=== PATIENT | male | born 1970 | race African-American/Black ===

== ENCOUNTER 2018-08-29 20:46 | Emergency (ER) | payer OTHER, SELFPAY ==
[2018-08-29] MEDS ORDERED: Adacel (T-DAP) 0.5 ML SYRINGE ONE (21:35)
--- NOTE | 2018-08-29 21:48 | RAD ---
Left ring finger 3 views HISTORY: Finger injury. FINDINGS: Joint spaces are preserved. Soft tissue swelling and laceration evident. No acute fracture, dislocation, or radiopaque foreign bodies. IMPRESSION: No acute osseous abnormalities are demonstrated.
[2018-08-29] MEDS ORDERED: Bacitracin Zinc 1 Packet ONE (22:11)
== END 2018-08-29 22:17 | disposition home or self-care (01) ==
LOC: ERS 20:46
DX: S61.215A Laceration without foreign body of left ring finger without damage to nail, initial encounter (principal); W45.8XXA Other foreign body or object entering through skin, initial encounter; Z23 Encounter for immunization
CPT/HCPCS: 12001; 90471; 90715

== ENCOUNTER 2022-02-11 14:10 | Inpatient (IN) | payer OTHER ==
[2022-02-11] MEDS ORDERED: Lidocaine 4% Cream 5 GM TUBE w/ Tegaderm ONE (15:13)
[2022-02-11 15:33] LABS: Mean Corpuscular HGB CONC 29.7 g/dL (32.0-36.0); Mean Corpuscular Hemoglobin 20.2 pg (27.0-31.0); Mean Corpuscular Volume 67.9 fl (78.0-98.0); Mean Platelet Volume 5.7 fL (7.4-10.4); Platelet Count 196 10x3/uL (130-400); RBC Distribution Width 21.4 % (11.5-14.5); Red Blood Cell (RBC) Count 2.98 mill/uL (4.70-6.10); White Blood Cell (WBC) Count 8.4 10x3/uL (4.8-10.8)
[2022-02-11 15:50] LABS: Anisocytosis MODERATE=16-30 cells (100X) (0-5/hpf); Band 10 % (5-11); Hypochromia SLIGHT = 6-15 cells (100X) (0-5/hpf); Lymphocytes 10 % (21-51); MDiff Complete? YES; Microcytosis SLIGHT = 6-15 cells (100X) (0-5/hpf); Monocytes 8 % (0-10); Neutrophil 72 % (42-75); Platelet Morphology Comment Appears Adequate; Polychromasia MODERATE = 3-4 cells (100X) (0-2/hpf); Spherocytes SLIGHT = 1-5 cells (100X) (None Seen); Target Cells SLIGHT = 2-5 cells (100X) (0-1/hpf); Tear Drops SLIGHT = 2-5 cells (100X) (0-1/hpf)
[2022-02-11 15:58] LABS: ALT (SGPT) 23 U/L (8-55); AST (SGOT) 91 U/L (5-34); Albumin 3.5 g/dL (3.5-5.0); Alkaline Phosphatase 122 U/L (40-110); Anion Gap 14 mmol/L (10-20); BUN (Urea Nitrogen) 5 mg/dL (8.4-25.7); Bilirubin, Total 0.5 mg/dL (0.2-1.2); Calc. Creatinine Clearance 0 mL/min (70-130); Calcium 8.6 mg/dL (7.8-10.44); Carbon Dioxide 22 mmol/L (22-29); Chloride 99 mmol/L (98-107); Estimated GFR 102; Globulin 3.8 g/dL (2.4-3.5); Glucose 100 mg/dL (70-105); Potassium 3.7 mmol/L (3.5-5.1); Protein, Total 7.3 g/dL (6.0-8.3); Sodium 131 mmol/L (136-145)
[2022-02-11 17:37] LABS: SARS-CoV-2 NAA Rapid Test Not Detected (NotDetected)
[2022-02-11] MEDS ORDERED: Boostrix 0.5 ML (Tdap) VIAL (>/=7 yrs of age) ONE (17:54)
[2022-02-11] MEDS ORDERED: Lorazepam 2 MG/ML VIAL IM PRN (17:57)
[2022-02-11] MEDS ORDERED: Ondansetron ODT 4 MG TAB PO PRN (17:57)
[2022-02-11] MEDS ORDERED: Lorazepam 1 MG TAB PO PRN (17:57)
[2022-02-11] MEDS ORDERED: Electrolyte Replacement Protocol 1 EACH FS SCH (18:00)
[2022-02-11] MEDS ORDERED: Benzonatate 100 MG CAP PO PRN (18:02)
[2022-02-11 18:30] LABS: Alcohol 18 mg/dL (Less than 10); Phosphorus 3.7 mg/dL (2.3-4.7)
[2022-02-11] MEDS ORDERED: Multivit, Therapeutic 1 TAB PO SCH (18:45)
[2022-02-11] MEDS ORDERED: Folic Acid 1 MG TAB PO SCH (18:45)
[2022-02-11 18:50] VITALS: BMI 25.8
[2022-02-11 19:34] LABS: Acetaminophen Less than 10.0 mcg/mL (10.0-30.0); Salicylate Less than 8.0 mg/dL (15.0-30.0)
[2022-02-11 20:09] LABS: Bacteria/HPF None Seen HPF (None Seen); Bilirubin Negative (Negative); Blood, Urine Negative (Negative); CAUTI Indications for Culture Fever or rigors; Clarity Clear (Clear); Glucose, Urine (Dipstick) Normal (Negative); Ketone, Urine Negative (Negative); Leukocyte Negative Leu/uL (Negative); Nitrite Negative (Negative); Protein, Urine (Dipstick) Negative (Neg-Trace); RBC/HPF 0-3 HPF (0-3); Specific Gravity, Urine 1.007 (1.002-1.036); Squamous Epithelial 0-3 HPF (0-3); Urobilinogen Normal mg/dL (Less than 2); WBC/HPF 0-3 HPF (0-3)
[2022-02-11 20:11] LABS: Urine Culture Reflex No No
[2022-02-11 20:16] LABS: Amphetamine Not Detected (NotDetected); Barbiturates Screen Not Detected (NotDetected); Benzodiazepine Screen Not Detected (NotDetected); Cocaine Metabolite Screen Not Detected (NotDetected); Methadone Not Detected (NotDetected); Methamphetamine Not Detected (NotDetected); Opiate Screen Not Detected (NotDetected); Oxycodone Screen Not Detected (NotDetected); Phencyclidine (PCP) Not Detected (NotDetected); THC/Cannabinoid Screen Not Detected (NotDetected); Tricyclic Screen Not Detected (NotDetected)
[2022-02-11] MEDS: Thiamine HCl 200 MG/2 ML VIAL SLOW IVP SCH (21:07)
[2022-02-11] MEDS: Pantoprazole 40 MG VIAL IVP SCH (21:08)
[2022-02-12] MEDS: Acetaminophen 325 MG TAB PO PRN ×4 (02:04→23:40)
[2022-02-12 05:19] LABS: Hemoglobin 5.7 g/dL (14.0-18.0); Mean Corpuscular HGB CONC 29.5 g/dL (32.0-36.0); Mean Corpuscular Hemoglobin 19.8 pg (27.0-31.0); Mean Corpuscular Volume 67.1 fl (78.0-98.0); Mean Platelet Volume 6.1 fL (7.4-10.4); Platelet Count 193 10x3/uL (130-400); RBC Distribution Width 21.3 % (11.5-14.5); Red Blood Cell (RBC) Count 2.89 mill/uL (4.70-6.10); White Blood Cell (WBC) Count 5.8 10x3/uL (4.8-10.8)
[2022-02-12 05:28] LABS: ALT (SGPT) 20 U/L (8-55); AST (SGOT) 74 U/L (5-34); Albumin 3.2 g/dL (3.5-5.0); Alkaline Phosphatase 105 U/L (40-110); Anion Gap 10 mmol/L (10-20); BUN (Urea Nitrogen) 6 mg/dL (8.4-25.7); Bilirubin, Direct 0.3 mg/dL (0.1-0.3); Bilirubin, Total 0.4 mg/dL (0.2-1.2); Calc. Creatinine Clearance 101 mL/min (70-130); Calcium 8.2 mg/dL (7.8-10.44); Carbon Dioxide 24 mmol/L (22-29); Chloride 102 mmol/L (98-107); Estimated GFR 104; Glucose 101 mg/dL (70-105); Iron 8 ug/dL (65-175); Iron Binding Capacity, Total 378 mcg/dL (261-462); Potassium 3.5 mmol/L (3.5-5.1); Protein, Total 6.7 g/dL (6.0-8.3); Sodium 132 mmol/L (136-145)
[2022-02-12 05:49] LABS: Ferritin 18.52 ng/mL (22-322)
[2022-02-12] MEDS ORDERED: Potassium Chloride 20 MEQ TAB PO SCH (08:00)
[2022-02-12] MEDS ORDERED: Magnesium 2 GM/50 ML(in water) 2 GM in Premix Bag 1 BAG IVPB SCH (08:00)
[2022-02-12] MEDS: Pantoprazole 40 MG VIAL IVP SCH ×2 (09:08→20:27)
[2022-02-12] MEDS: Multivit, Therapeutic 1 TAB PO SCH (09:08)
[2022-02-12] MEDS: Folic Acid 1 MG TAB PO SCH (09:08)
[2022-02-12] MEDS ORDERED: GoLYTELY 4,000 ml Bottle PO SCH (17:00)
[2022-02-12] MEDS: Thiamine HCl 200 MG/2 ML VIAL SLOW IVP SCH (17:13)
[2022-02-12] MEDS ORDERED: Lorazepam 1 MG TAB PO PRN (17:57)
[2022-02-12 18:39] LABS: Hemoglobin 8.1 g/dL (14.0-18.0)
[2022-02-13 05:07] LABS: #Eosinphils 0.1 thou/uL (0.0-0.7); #Lymphocytes 2.1 thou/uL (1.20-3.40); #Neutrophils 4.1 thou/uL (1.40-6.50); %Basophils 0.1 % (0.0-1.0); %Eosinophils 1.2 % (0.0-10.0); %Monocytes 13.1 % (0.0-10.0); %Neutrophils 56.5 % (42.0-75.0); Hemoglobin 8.1 g/dL (14.0-18.0); Mean Corpuscular HGB CONC 33.1 g/dL (32.0-36.0); Mean Corpuscular Hemoglobin 23.9 pg (27.0-31.0); Mean Corpuscular Volume 72.1 fl (78.0-98.0); Mean Platelet Volume 6.5 fL (7.4-10.4); Platelet Count 166 10x3/uL (130-400); RBC Distribution Width 22.7 % (11.5-14.5); Red Blood Cell (RBC) Count 3.41 mill/uL (4.70-6.10); White Blood Cell (WBC) Count 7.2 10x3/uL (4.8-10.8)
[2022-02-13 05:30] LABS: ALT (SGPT) 22 U/L (8-55); AST (SGOT) 69 U/L (5-34); Albumin 3.2 g/dL (3.5-5.0); Alkaline Phosphatase 111 U/L (40-110); Anion Gap 11 mmol/L (10-20); BUN (Urea Nitrogen) 5 mg/dL (8.4-25.7); Bilirubin, Total 1.1 mg/dL (0.2-1.2); Calc. Creatinine Clearance 109 mL/min (70-130); Calcium 8.3 mg/dL (7.8-10.44); Carbon Dioxide 23 mmol/L (22-29); Chloride 103 mmol/L (98-107); Estimated GFR 106; Globulin 3.7 g/dL (2.4-3.5); Glucose 94 mg/dL (70-105); Magnesium 2.1 mg/dL (1.6-2.6); Phosphorus 2.8 mg/dL (2.3-4.7); Potassium 3.7 mmol/L (3.5-5.1); Protein, Total 6.9 g/dL (6.0-8.3); Sodium 133 mmol/L (136-145)
[2022-02-13] MEDS: Acetaminophen 325 MG TAB PO PRN (06:18)
[2022-02-13] MEDS ORDERED: PROPOFOL 200 MG/20 ML VIAL ONE (09:15)
[2022-02-13] MEDS ORDERED: Promethazine HCl 25 MG/ML VIAL IM PRN (09:46)
[2022-02-13] MEDS ORDERED: Ondansetron HCl/PF 4 MG/2 ML Vial IVP PRN (09:46)
[2022-02-13] MEDS ORDERED: Promethazine HCl 25 MG/ML VIAL IVPB PRN (09:46)
[2022-02-13] MEDS: Folic Acid 1 MG TAB PO SCH (16:55)
[2022-02-13] MEDS: Multivit, Therapeutic 1 TAB PO SCH (16:55)
[2022-02-13] MEDS: Thiamine HCl 200 MG/2 ML VIAL SLOW IVP SCH (16:55)
[2022-02-13] MEDS: Pantoprazole 40 MG VIAL IVP SCH ×2 (16:56→20:28)
[2022-02-13] MEDS ORDERED: Lorazepam 1 MG TAB PO PRN (17:57)
[2022-02-14 05:31] LABS: #Basophils 0.1 thou/uL (0.0-0.2); #Eosinphils 0.2 thou/uL (0.0-0.7); #Lymphocytes 2.8 thou/uL (1.20-3.40); #Neutrophils 4.3 thou/uL (1.40-6.50); %Basophils 1.6 % (0.0-1.0); %Eosinophils 2.1 % (0.0-10.0); %Lymphocytes 33.4 % (21.0-51.0); %Monocytes 11.5 % (0.0-10.0); %Neutrophils 51.4 % (42.0-75.0); Hemoglobin 8.2 g/dL (14.0-18.0); Mean Corpuscular HGB CONC 31.2 g/dL (32.0-36.0); Mean Corpuscular Hemoglobin 22.3 pg (27.0-31.0); Mean Corpuscular Volume 71.3 fl (78.0-98.0); Mean Platelet Volume 6.7 fL (7.4-10.4); Platelet Count 163 10x3/uL (130-400); RBC Distribution Width 23.2 % (11.5-14.5); Red Blood Cell (RBC) Count 3.67 mill/uL (4.70-6.10); White Blood Cell (WBC) Count 8.4 10x3/uL (4.8-10.8)
[2022-02-14 05:43] LABS: ALT (SGPT) 24 U/L (8-55); AST (SGOT) 64 U/L (5-34); Albumin 3.2 g/dL (3.5-5.0); Alkaline Phosphatase 103 U/L (40-110); Anion Gap 10 mmol/L (10-20); BUN (Urea Nitrogen) 6 mg/dL (8.4-25.7); Bilirubin, Total 0.6 mg/dL (0.2-1.2); Calc. Creatinine Clearance 106 mL/min (70-130); Calcium 8.3 mg/dL (7.8-10.44); Carbon Dioxide 24 mmol/L (22-29); Chloride 104 mmol/L (98-107); Estimated GFR 105; Globulin 3.5 g/dL (2.4-3.5); Glucose 97 mg/dL (70-105); Potassium 3.7 mmol/L (3.5-5.1); Protein, Total 6.7 g/dL (6.0-8.3); Sodium 134 mmol/L (136-145)
[2022-02-14] MEDS ORDERED: FLU VACC QS2022-23(6MOS UP)/PF 60 MCG/0.5 ML SYRINGE IM ONE (09:00)
[2022-02-14] MEDS: Multivit, Therapeutic 1 TAB PO SCH (09:32)
[2022-02-14] MEDS: Folic Acid 1 MG TAB PO SCH (09:32)
[2022-02-14] MEDS: Pantoprazole 40 MG VIAL IVP SCH (09:33)
[2022-02-14 11:37] VITALS: BP 115/71; TEMP 98.4
[2022-02-14] MEDS ORDERED: Lorazepam 0.5 MG TAB PO PRN (17:57)
[2022-02-14] MEDS ORDERED: Thiamine 100 MG TAB PO SCH (18:00)
== END 2022-02-14 16:26 | disposition home or self-care (01) | DRG 812 ==
LOC: ERS 14:10 → 2SW 17:35 → OBSVTOIN 17:35 → 2SW 18:32
PROVIDERS: ADMIT Hospitalist; ATTEND Hospitalist
PROC: 30233N1 Transfusion of Nonautologous Red Blood Cells into Peripheral Vein, Percutaneous Approach (ICD-10-PCS; principal; 2022-02-11)
PROC: 0DB68ZX Excision of Stomach, Via Natural or Artificial Opening Endoscopic, Diagnostic (ICD-10-PCS; 2022-02-13)
PROC: 0DBL8ZZ Excision of Transverse Colon, Via Natural or Artificial Opening Endoscopic (ICD-10-PCS; 2022-02-13)
DX: D50.9 Iron deficiency anemia, unspecified (principal); E87.1 Hypo-osmolality and hyponatremia; Z20.822 Contact with and (suspected) exposure to COVID-19; K64.8 Other hemorrhoids; K64.4 Residual hemorrhoidal skin tags; K63.5 Polyp of colon; R05.9 Cough, unspecified; R94.5 Abnormal results of liver function studies; K29.70 Gastritis, unspecified, without bleeding; K70.10 Alcoholic hepatitis without ascites; F10.10 Alcohol abuse, uncomplicated; Z28.21 Immunization not carried out because of patient refusal
CPT/HCPCS: 12001; 36415; 36430; 70450; 71045; 80048; 80053; 80076; 80143; 80179; 80306; 80307; 81001; 82274; 82607; 82728; 83540; 83550; 83735; 84100; 84484; 85025; 86850; 86900; 86901; 87040; 87804; 88305; 88342; 90471; 90715; 93005; 93306; 96360; 96361; 96374; 96375; 96376; C1776; C9113; G0378; J2704; J3411; J3475; P9016; U0002

== ENCOUNTER 2023-01-03 11:34 | Emergency (ER) | payer OTHER ==
[2023-01-03 13:06] LABS: #Eosinphils 0.1 thou/uL (0.0-0.7); #Monocytes 0.9 thou/uL (0.11-0.59); #Neutrophils 5.7 thou/uL (1.40-6.50); %Basophils 0.5 % (0.0-1.0); %Eosinophils 0.6 % (0.0-10.0); %Lymphocytes 17.3 % (21.0-51.0); %Monocytes 11.3 % (0.0-10.0); %Neutrophils 69.9 % (42.0-75.0); Hematocrit 34.7 % (42.0-52.0); Hemoglobin 11.4 g/dL (14.0-18.0); Mean Corpuscular HGB CONC 32.9 g/dL (32.0-36.0); Mean Corpuscular Hemoglobin 27.1 pg (27.0-31.0); Mean Corpuscular Volume 82.6 fl (78.0-98.0); Mean Platelet Volume 11.3 fL (7.4-10.4); RBC Distribution Width 15.9 % (11.5-14.5); White Blood Cell (WBC) Count 8.1 10x3/uL (4.8-10.8)
[2023-01-03 13:08] LABS: Platelet Count 105 10x3/uL (130-400)
[2023-01-03 13:25] LABS: ALT (SGPT) 33 U/L (8-55); AST (SGOT) 136 U/L (5-34); Albumin 4.3 g/dL (3.5-5.0); Alkaline Phosphatase 214 U/L (40-110); Anion Gap 16 mmol/L (10-20); BUN (Urea Nitrogen) 4 mg/dL (8.4-25.7); Bilirubin, Total 1.6 mg/dL (0.2-1.2); Calc. Creatinine Clearance 0 mL/min (70-130); Calcium 9.6 mg/dL (7.8-10.44); Carbon Dioxide 22 mmol/L (22-29); Chloride 100 mmol/L (98-107); Estimated GFR 107; Globulin 3.6 g/dL (2.4-3.5); Glucose 105 mg/dL (70-105); Potassium 3.9 mmol/L (3.5-5.1); Protein, Total 7.9 g/dL (6.0-8.3); Sodium 134 mmol/L (136-145)
[2023-01-03 13:48] LABS: SARS-CoV-2 NAA Rapid Test Not Detected (NotDetected)
== END 2023-01-03 14:37 | disposition home or self-care (01) ==
LOC: ERS 11:34
DX: J06.9 Acute upper respiratory infection, unspecified (principal); Z20.822 Contact with and (suspected) exposure to COVID-19
CPT/HCPCS: 36415; 71046; 80053; 85025

== ENCOUNTER 2023-12-22 08:28 | Inpatient (IN) | payer OTHER ==
[2023-12-22] MEDS ORDERED: Ondansetron PF 4 MG/2 ML Vial ONE (09:21)
[2023-12-22] MEDS ORDERED: Pantoprazole 40 MG VIAL ONE (09:21)
[2023-12-22 10:14] LABS: #Basophils 0.06 10x3/uL (0.0-0.2); %Basophils 0.4 % (0.0-1.0); %Eosinophils 1.8 % (0.0-10.0); %Lymphocytes 15.4 % (21.0-51.0); %Monocytes 9.2 % (0.0-10.0); %Neutrophils 72.7 % (42.0-75.0); Hematocrit 21.7 % (42.0-52.0); Hemoglobin 7.1 g/dL (14.0-18.0); Mean Corpuscular HGB CONC 32.7 g/dL (32.0-36.0); Mean Corpuscular Hemoglobin 22.8 pg (27.0-31.0); Mean Corpuscular Volume 69.6 fL (78.0-98.0); Mean Platelet Volume 10.5 fL (7.4-10.4); Platelet Count 141 10x3/uL (130-400); RBC Distribution Width 18.6 % (11.5-14.5); Red Blood Cell (RBC) Count 3.12 mill/uL (4.70-6.10)
[2023-12-22 10:17] LABS: INR-International Normal Ratio 1.2; Prothrombin Time 15.7 sec (12.0-14.7)
[2023-12-22 10:21] LABS: ALT (SGPT) 14 U/L (8-55); AST (SGOT) 59 U/L (5-34); Alkaline Phosphatase 229 U/L (40-110); Anion Gap 13 mmol/L (10-20); BUN (Urea Nitrogen) 8 mg/dL (8.4-25.7); Bilirubin, Total 1.9 mg/dL (0.2-1.2); Calc. Creatinine Clearance 0 mL/min (70-130); Calcium 8.8 mg/dL (7.8-10.44); Carbon Dioxide 24 mmol/L (22-29); Chloride 104 mmol/L (98-107); Estimated GFR 107; Glucose 115 mg/dL (70-105); Lipase 33 U/L (8-78); Magnesium 1.9 mg/dL (1.6-2.6); Potassium 3.8 mmol/L (3.5-5.1); Sodium 137 mmol/L (136-145)
[2023-12-22 10:31] LABS: Troponin I Less than 0.010 ng/mL (< 0.028)
[2023-12-22 10:34] LABS: Bacteria/HPF None Seen HPF (None Seen); Bilirubin Negative (Negative); Blood, Urine Negative (Negative); CAUTI Indications for Culture Dysuria,urgency,freq; Clarity Clear (Clear); Glucose, Urine (Dipstick) Normal (Negative); Ketone, Urine Negative (Negative); Leukocyte Negative Leu/uL (Negative); Nitrite Negative (Negative); Protein, Urine (Dipstick) Negative (Neg-Trace); RBC/HPF None Seen HPF (0-3); Specific Gravity, Urine 1.012 (1.002-1.036); Squamous Epithelial 0-3 HPF (0-3); Urobilinogen Normal mg/dL (Less than 2); WBC/HPF 0-3 HPF (0-3); pH, Urine 6.5 (5.0-9.0)
[2023-12-22 10:42] LABS: Urine Culture Reflex No No
[2023-12-22] MEDS ORDERED: Octreotide Acetate 1,250 MCG in Sodium Chloride 0.9% 250 ML 250 ML IVPB SCH (11:15)
[2023-12-22] MEDS ORDERED: Pantoprazole 80 MG, Admixture Fee 1 EACH in Sodium Chloride 0.9% 100 ML IVPB SCH (11:15)
[2023-12-22] MEDS ORDERED: Iopamidol-370 76% 500 ML MDV (1 ML CHARGE) ONE (11:31)
[2023-12-22] MEDS ORDERED: cefTRIAXone (ROCEPHIN) 2 GM VIAL ONE (11:35)
[2023-12-22] MEDS ORDERED: Sodium Chloride 0.9% 100 ML ONE (11:35)
[2023-12-22] MEDS ORDERED: Ondansetron PF 4 MG/2 ML Vial IVP PRN (12:05)
[2023-12-22] MEDS ORDERED: Ondansetron ODT 4 MG TAB PO PRN (12:05)
[2023-12-22] MEDS ORDERED: Lorazepam 2 MG/ML VIAL IM PRN (12:05)
[2023-12-22] MEDS ORDERED: Lorazepam 1 MG TAB PO PRN (12:05)
[2023-12-22] MEDS ORDERED: Electrolyte Replacement Protocol 1 EACH FS SCH (12:15)
[2023-12-22] MEDS: Magnesium 2 GM/50 ML(in water) 2 GM in Premix 1 BAG IVPB SCH (15:27)
[2023-12-22] MEDS: Lorazepam 1 MG TAB PO SCH (15:27)
[2023-12-22] MEDS: Acetaminophen 325 MG TAB PO SCH (15:27)
[2023-12-22] MEDS: Thiamine HCl 200 MG/2 ML VIAL SLOW IVP SCH (15:27)
[2023-12-22] MEDS: Octreotide Acetate 50 MCG/ML AMP SLOW IVP SCH (15:27)
[2023-12-22 15:33] LABS: Lactic Acid 1.46 mmol/L (0.5-2.2)
[2023-12-22] MEDS: Folic Acid 1 MG TAB PO SCH (21:21)
[2023-12-22] MEDS: Multivit, Therapeutic 1 TAB PO SCH (21:21)
[2023-12-22] MEDS: Pantoprazole 40 MG VIAL IVP SCH (21:22)
[2023-12-23 02:58] LABS: #Basophils 0.06 10x3/uL (0.0-0.2); %Basophils 0.5 % (0.0-1.0); %Eosinophils 2.8 % (0.0-10.0); %Lymphocytes 14.1 % (21.0-51.0); %Monocytes 8.8 % (0.0-10.0); %Neutrophils 73.4 % (42.0-75.0); Hematocrit 19.8 % (42.0-52.0); Hemoglobin 6.5 g/dL (14.0-18.0); Mean Corpuscular HGB CONC 32.8 g/dL (32.0-36.0); Mean Corpuscular Hemoglobin 23.2 pg (27.0-31.0); Mean Corpuscular Volume 70.7 fL (78.0-98.0); Mean Platelet Volume 11.1 fL (7.4-10.4); Platelet Count 108 10x3/uL (130-400); RBC Distribution Width 18.9 % (11.5-14.5)
[2023-12-23 02:59] LABS: Anisocytosis SLIGHT = 6-15 cells HPF (0-5); Hypochromia SLIGHT = 6-15 cells HPF (0-5); Microcytosis SLIGHT = 6-15 cells HPF (0-5); Platelet Adequacy Comment Platelets Decreased; Polychromasia SLIGHT = 2-3 cells HPF (0-2); Target Cells SLIGHT = 2-5 cells HPF (0-1)
[2023-12-23 03:41] LABS: Anion Gap 14 mmol/L (10-20); BUN (Urea Nitrogen) 7 mg/dL (8.4-25.7); Calc. Creatinine Clearance 115 mL/min (70-130); Calcium 7.9 mg/dL (7.8-10.44); Carbon Dioxide 19 mmol/L (22-29); Chloride 103 mmol/L (98-107); Estimated GFR 109; Glucose 134 mg/dL (70-105); Potassium 3.8 mmol/L (3.5-5.1); Sodium 132 mmol/L (136-145)
[2023-12-23] MEDS ORDERED: PROPOFOL 20 ML ONE (08:52)
[2023-12-23] MEDS ORDERED: Lidocaine 2% PF 5 ML VIAL ONE (08:59)
[2023-12-23] MEDS ORDERED: PHENYLEPHRINE-NS 100 MCG/ML 10 ML SYRINGE ONE (09:12)
[2023-12-23] MEDS ORDERED: Morphine Sulfate 2 MG/ML SYRINGE SLOW IVP PRN (09:14)
[2023-12-23] MEDS ORDERED: Ondansetron HCl/PF 4 MG/2 ML Vial IVP PRN (09:14)
[2023-12-23] MEDS ORDERED: Promethazine HCl 25 MG/ML VIAL IM PRN (09:14)
[2023-12-23] MEDS: Magnesium 2 GM/50 ML(in water) 2 GM in Premix 1 BAG IVPB SCH (10:33)
[2023-12-23 10:57] LABS: Amphetamine Not Detected (NotDetected); Barbiturates Screen Not Detected (NotDetected); Benzodiazepine Screen Detected (NotDetected); Cocaine Metabolite Screen Not Detected (NotDetected); Methadone Not Detected (NotDetected); Methamphetamine Not Detected (NotDetected); Opiate Screen Not Detected (NotDetected); Oxycodone Screen Not Detected (NotDetected); Phencyclidine (PCP) Not Detected (NotDetected); THC/Cannabinoid Screen Not Detected (NotDetected); Tricyclic Screen Not Detected (NotDetected)
[2023-12-23 11:47] LABS: Hemoglobin 9.3 g/dL (14.0-18.0)
[2023-12-23] MEDS ORDERED: Lorazepam 1 MG TAB PO PRN (12:05)
[2023-12-23] MEDS: GoLYTELY 4,000 ml Bottle PO SCH (17:13)
[2023-12-24 05:12] LABS: #Basophils 0.05 10x3/uL (0.0-0.2); %Basophils 0.5 % (0.0-1.0); %Eosinophils 2.2 % (0.0-10.0); %Lymphocytes 13.7 % (21.0-51.0); %Monocytes 8.4 % (0.0-10.0); %Neutrophils 74.8 % (42.0-75.0); Hematocrit 25.5 % (42.0-52.0); Hemoglobin 8.3 g/dL (14.0-18.0); Mean Corpuscular HGB CONC 32.5 g/dL (32.0-36.0); Mean Corpuscular Volume 73.7 fL (78.0-98.0); Platelet Count 106 10x3/uL (130-400); RBC Distribution Width 20.5 % (11.5-14.5); Red Blood Cell (RBC) Count 3.46 mill/uL (4.70-6.10)
[2023-12-24 05:43] LABS: Anion Gap 11 mmol/L (10-20); BUN (Urea Nitrogen) 5 mg/dL (8.4-25.7); Calc. Creatinine Clearance 119 mL/min (70-130); Calcium 8.4 mg/dL (7.8-10.44); Carbon Dioxide 24 mmol/L (22-29); Chloride 102 mmol/L (98-107); Estimated GFR 110; Glucose 106 mg/dL (70-105); Magnesium 1.9 mg/dL (1.6-2.6); Potassium 3.6 mmol/L (3.5-5.1); Sodium 133 mmol/L (136-145)
[2023-12-24] MEDS ORDERED: Electrolyte Replacement Protocol FS PRN (06:15)
[2023-12-24] MEDS ORDERED: Lidocaine 1% PF 5 ML VIAL ONE (07:14)
[2023-12-24] MEDS ORDERED: PHENYLEPHRINE-NS 100 MCG/ML 10 ML SYRINGE ONE (07:14)
[2023-12-24] MEDS ORDERED: PROPOFOL 40 ML ONE (07:15)
[2023-12-24] MEDS ORDERED: PROPOFOL 20 ML ONE (08:59)
[2023-12-24] MEDS: Magnesium 2 GM/50 ML(in water) 2 GM in Premix 1 BAG IVPB SCH (10:43)
[2023-12-24] MEDS: FLU (Fluarix Triv) TS24-25(6MOS UP)/PF 45 MCG/0.5 ML Syringe IM ONE (10:43)
[2023-12-24] MEDS ORDERED: Lorazepam 1 MG TAB PO PRN (12:05)
[2023-12-24] MEDS ORDERED: Lorazepam 0.5 MG TAB PO SCH (12:15)
[2023-12-24] MEDS: Lorazepam 0.5 MG TAB PO SCH (20:39)
[2023-12-25 05:20] LABS: #Basophils 0.06 10x3/uL (0.0-0.2); %Basophils 0.6 % (0.0-1.0); %Eosinophils 2.1 % (0.0-10.0); %Lymphocytes 17.1 % (21.0-51.0); %Monocytes 9.1 % (0.0-10.0); %Neutrophils 70.7 % (42.0-75.0); Hemoglobin 7.8 g/dL (14.0-18.0); Mean Corpuscular HGB CONC 32.5 g/dL (32.0-36.0); Mean Corpuscular Hemoglobin 24.2 pg (27.0-31.0); Mean Corpuscular Volume 74.5 fL (78.0-98.0); Platelet Count 116 10x3/uL (130-400); RBC Distribution Width 21.2 % (11.5-14.5); Red Blood Cell (RBC) Count 3.22 mill/uL (4.70-6.10)
[2023-12-25 05:38] LABS: Anion Gap 13 mmol/L (10-20); BUN (Urea Nitrogen) 4 mg/dL (8.4-25.7); Calc. Creatinine Clearance 122 mL/min (70-130); Calcium 8.1 mg/dL (7.8-10.44); Carbon Dioxide 24 mmol/L (22-29); Chloride 101 mmol/L (98-107); Estimated GFR 111; Glucose 98 mg/dL (70-105); Magnesium 1.9 mg/dL (1.6-2.6); Potassium 3.5 mmol/L (3.5-5.1); Sodium 134 mmol/L (136-145)
[2023-12-25 05:45] LABS: Anisocytosis SLIGHT = 6-15 cells HPF (0-5); Hypochromia SLIGHT = 6-15 cells HPF (0-5); Microcytosis SLIGHT = 6-15 cells HPF (0-5); Platelet Adequacy Comment Platelets Decreased; Polychromasia MODERATE = 3-4 cells HPF (0-2); Target Cells MODERATE= 6-15 cells HPF (0-1)
[2023-12-25] MEDS: Thiamine 100 MG TAB PO SCH (08:49)
[2023-12-25] MEDS: Potassium Chloride 20 MEQ TAB PO SCH (08:50)
[2023-12-25] MEDS: Magnesium 2 GM/50 ML(in water) 2 GM in Premix 1 BAG IVPB SCH (10:53)
[2023-12-25] MEDS ORDERED: Lorazepam 0.5 MG TAB PO PRN (12:05)
[2023-12-25] MEDS: Sodium Ferric Gluconate 250 MG in Sodium Chloride 0.9% 250 ML 250 ML IVPB SCH (18:17)
[2023-12-26 01:14] LABS: Potassium 3.7 mmol/L (3.5-5.1)
[2023-12-26 04:54] LABS: #Basophils 0.05 10x3/uL (0.0-0.2); %Basophils 0.4 % (0.0-1.0); %Eosinophils 2.1 % (0.0-10.0); %Lymphocytes 14.4 % (21.0-51.0); %Monocytes 10.8 % (0.0-10.0); %Neutrophils 71.6 % (42.0-75.0); Hematocrit 23.8 % (42.0-52.0); Hemoglobin 7.7 g/dL (14.0-18.0); Mean Corpuscular HGB CONC 32.4 g/dL (32.0-36.0); Mean Corpuscular Hemoglobin 24.4 pg (27.0-31.0); Mean Corpuscular Volume 75.3 fL (78.0-98.0); Mean Platelet Volume 11.2 fL (7.4-10.4); Platelet Count 111 10x3/uL (130-400); RBC Distribution Width 22.3 % (11.5-14.5); Red Blood Cell (RBC) Count 3.16 mill/uL (4.70-6.10)
[2023-12-26 05:21] LABS: Anion Gap 10 mmol/L (10-20); BUN (Urea Nitrogen) 4 mg/dL (8.4-25.7); Calc. Creatinine Clearance 108 mL/min (70-130); Carbon Dioxide 23 mmol/L (22-29); Chloride 105 mmol/L (98-107); Estimated GFR 107; Glucose 107 mg/dL (70-105); Potassium 3.8 mmol/L (3.5-5.1); Sodium 134 mmol/L (136-145)
[2023-12-26] MEDS: Magnesium 2 GM/50 ML(in water) 2 GM in Premix 1 BAG IVPB SCH (09:03)
[2023-12-26] MEDS ORDERED: fentaNYL PF 100 MCG/2 ML SYRINGE ONE ×3 (10:57→15:43)
[2023-12-26] MEDS ORDERED: Dexamethasone 20 MG/5 ML VIAL ONE (10:57)
[2023-12-26] MEDS ORDERED: Lidocaine 1% PF 5 ML VIAL ONE (10:57)
[2023-12-26] MEDS ORDERED: Rocuronium Bromide 10 MG/ML (10ML VIAL) ONE ×2 (10:57→14:23)
[2023-12-26] MEDS ORDERED: Ondansetron PF 4 MG/2 ML Vial ONE (10:57)
[2023-12-26] MEDS ORDERED: PROPOFOL 20 ML ONE (10:57)
[2023-12-26] MEDS ORDERED: Midazolam HCl 2 mg/2 ml Vial ONE (10:57)
[2023-12-26] MEDS ORDERED: PHENYLEPHRINE-NS 100 MCG/ML 10 ML SYRINGE ONE (11:01)
[2023-12-26] MEDS ORDERED: Glycopyrrolate 0.2 MG/ML 5 ML SYRINGE ONE (11:01)
[2023-12-26 11:29] LABS: INR-International Normal Ratio 1.4; Prothrombin Time 17.1 sec (12.0-14.7)
[2023-12-26 11:30] LABS: PTT 45.6 sec (22.9-36.1)
[2023-12-26] MEDS ORDERED: cefOXitin 2 GM VIAL ONE ×2 (11:38→14:15)
[2023-12-26] MEDS ORDERED: SUCCINYLCHOLINE/SOD CL,ISO/PF 200 MG/10 ML SYRINGE FS ONE (11:53)
[2023-12-26] MEDS ORDERED: Ketamine In 0.9 % NaCl 50 MG/5 ML SYRINGE ONE (12:37)
[2023-12-26] MEDS ORDERED: ePHEDrine Sulfate 50 MG/10 ML VIAL ONE (13:20)
[2023-12-26] MEDS ORDERED: SUGAMMADEX SODIUM 200 MG/2 ML VIAL ONE ×2 (15:11→15:34)
[2023-12-26] MEDS ORDERED: HYDROmorphone 0.5 MG/0.5 ML SYRINGE ONE (15:43)
[2023-12-26] MEDS ORDERED: HYDROmorphone/PF 10 MG in Sodium Chloride 0.9% 99 ML IV PRN (16:01)
[2023-12-26] MEDS ORDERED: Promethazine HCl 25 MG/ML VIAL IM PRN (16:01)
[2023-12-26] MEDS ORDERED: diphenhydrAMINE 50 MG/ML VIAL IM PRN (16:01)
[2023-12-26] MEDS ORDERED: diphenhydrAMINE 25 MG CAP PO PRN (16:01)
[2023-12-26] MEDS ORDERED: Naloxone HCl 0.4 mg/ml Vial IV PRN (16:01)
[2023-12-26] MEDS ORDERED: diphenhydrAMINE 50 MG/ML VIAL IVP PRN (16:01)
[2023-12-26] MEDS ORDERED: Ondansetron PF 4 MG/2 ML Vial IVP PRN (16:01)
[2023-12-26] MEDS ORDERED: Communication Order-Pharmacy FS SCH (16:15)
[2023-12-26] MEDS: cefOXitin 2 GM in Sodium Chloride 0.9% 100 ML IVPB SCH (20:55)
[2023-12-26] MEDS: Sodium Chloride 0.9% 1,000 ML IV SCH (20:55)
[2023-12-27 04:57] LABS: #Basophils Less than 0.03 10x3/uL (0.0-0.2); #Eosinophils Less than 0.03 10x3/uL (0.0-0.7); %Basophils 0.1 % (0.0-1.0); %Lymphocytes 7.6 % (21.0-51.0); %Neutrophils 82.6 % (42.0-75.0); Hematocrit 28.3 % (42.0-52.0); Hemoglobin 9.2 g/dL (14.0-18.0); Mean Corpuscular HGB CONC 32.5 g/dL (32.0-36.0); Mean Corpuscular Hemoglobin 24.9 pg (27.0-31.0); Mean Corpuscular Volume 76.7 fL (78.0-98.0); Platelet Count 121 10x3/uL (130-400); RBC Distribution Width 22.5 % (11.5-14.5); Red Blood Cell (RBC) Count 3.69 mill/uL (4.70-6.10)
[2023-12-27 05:31] LABS: ALT (SGPT) 13 U/L (8-55); AST (SGOT) 45 U/L (5-34); Albumin 2.6 g/dL (3.5-5.0); Alkaline Phosphatase 167 U/L (40-110); Anion Gap 12 mmol/L (10-20); BUN (Urea Nitrogen) 6 mg/dL (8.4-25.7); Bilirubin, Total 1.8 mg/dL (0.2-1.2); Calc. Creatinine Clearance 93 mL/min (70-130); Calcium 8.2 mg/dL (7.8-10.44); Carbon Dioxide 20 mmol/L (22-29); Chloride 106 mmol/L (98-107); Estimated GFR 101; Globulin 4.4 g/dL (2.4-3.5); Glucose 132 mg/dL (70-105); Potassium 4.9 mmol/L (3.5-5.1); Sodium 133 mmol/L (136-145)
[2023-12-27] MEDS: Octreotide Acetate 1,250 MCG in Sodium Chloride 0.9% 250 ML 250 ML IVPB SCH (06:06)
[2023-12-28 06:37] LABS: INR-International Normal Ratio 1.4; Prothrombin Time 17.5 sec (12.0-14.7)
[2023-12-28 06:38] LABS: ALT (SGPT) 15 U/L (8-55); AST (SGOT) 60 U/L (5-34); Albumin 2.5 g/dL (3.5-5.0); Alkaline Phosphatase 154 U/L (40-110); Anion Gap 11 mmol/L (10-20); BUN (Urea Nitrogen) 6 mg/dL (8.4-25.7); Bilirubin, Direct 0.9 mg/dL (0.1-0.3); Calc. Creatinine Clearance 113 mL/min (70-130); Carbon Dioxide 22 mmol/L (22-29); Chloride 107 mmol/L (98-107); Estimated GFR 107; Glucose 111 mg/dL (70-105); PTT 50.9 sec (22.9-36.1); Potassium 4.1 mmol/L (3.5-5.1); Protein, Total 6.3 g/dL (6.0-8.3); Sodium 136 mmol/L (136-145)
[2023-12-28 06:48] LABS: #Basophils 0.06 10x3/uL (0.0-0.2); %Basophils 0.5 % (0.0-1.0); %Eosinophils 1.4 % (0.0-10.0); %Lymphocytes 15.3 % (21.0-51.0); %Monocytes 13.4 % (0.0-10.0); Hemoglobin 8.7 g/dL (14.0-18.0); Mean Corpuscular HGB CONC 32.2 g/dL (32.0-36.0); Mean Corpuscular Hemoglobin 25.3 pg (27.0-31.0); Mean Corpuscular Volume 78.5 fL (78.0-98.0); Mean Platelet Volume 10.5 fL (7.4-10.4); Platelet Count 138 10x3/uL (130-400); RBC Distribution Width 23.2 % (11.5-14.5); Red Blood Cell (RBC) Count 3.44 mill/uL (4.70-6.10)
[2023-12-28 06:57] LABS: Bilirubin, Total 1.5 mg/dL (0.2-1.2); Calcium 8.2 mg/dL (7.8-10.44)
[2023-12-28] MEDS: Cholecalciferol 1,000 UNITS (25 MCG) TAB PO SCH (08:50)
[2023-12-28 10:57] VITALS: BMI 26.8
[2023-12-29 06:29] LABS: #Basophils 0.06 10x3/uL (0.0-0.2); %Basophils 0.4 % (0.0-1.0); %Eosinophils 1.8 % (0.0-10.0); %Lymphocytes 15.8 % (21.0-51.0); %Monocytes 11.1 % (0.0-10.0); %Neutrophils 70.5 % (42.0-75.0); Hematocrit 28.7 % (42.0-52.0); Hemoglobin 9.3 g/dL (14.0-18.0); Mean Corpuscular HGB CONC 32.4 g/dL (32.0-36.0); Mean Corpuscular Hemoglobin 25.2 pg (27.0-31.0); Mean Corpuscular Volume 77.8 fL (78.0-98.0); Mean Platelet Volume 10.8 fL (7.4-10.4); Platelet Count 141 10x3/uL (130-400); Red Blood Cell (RBC) Count 3.69 mill/uL (4.70-6.10)
[2023-12-29 06:43] LABS: Anion Gap 11 mmol/L (10-20); BUN (Urea Nitrogen) 5 mg/dL (8.4-25.7); Calc. Creatinine Clearance 108 mL/min (70-130); Calcium 8.2 mg/dL (7.8-10.44); Carbon Dioxide 24 mmol/L (22-29); Chloride 107 mmol/L (98-107); Estimated GFR 106; Glucose 92 mg/dL (70-105); Potassium 3.9 mmol/L (3.5-5.1); Sodium 138 mmol/L (136-145)
[2023-12-29 07:07] LABS: HBsAg Index 0.34 S/CO (0-0.99); Hep A IgM AB NONREACTIVE (NonReactive); Hep A IgM S/CO 0.28 S/CO (0-0.79); Hep B Core IgM Index 0.17 S/CO (0-0.79); Hep B Surf Ag NONREACTIVE S/CO (NonReactive); Hep C IgG Ab NONREACTIVE S/CO (NonReactive); Hep C Index 0.28 S/CO (0-0.79); Hepatitis B Core IgM Abs NONREACTIVE S/CO (NonReactive)
[2023-12-29] MEDS: Pantoprazole 40 MG VIAL IVP SCH (08:30)
[2023-12-29 11:42] LABS: ANA Symphony (Qualitative) Negative (Negative); ANA Symphony (Quantitative) 0.4 Ratio (< 0.7 Negative); EliA Vaculitis New Method **** NEW METHOD ****; Mitochondrial Ab 1.5 U/mL (<4 Negative); dsDNA IgG Antibody 1.3 IU/mL (<10 Negative)
[2023-12-29] MEDS ORDERED: Morphine 2 MG/ML VIAL SLOW IVP PRN (14:34)
[2023-12-29] MEDS: HYDROcodone/Acetaminophen 10/325 mg Tablet PO PRN (21:40)
[2023-12-30 06:12] LABS: #Basophils 0.06 10x3/uL (0.0-0.2); %Basophils 0.4 % (0.0-1.0); %Eosinophils 1.6 % (0.0-10.0); %Lymphocytes 13.1 % (21.0-51.0); %Monocytes 9.4 % (0.0-10.0); %Neutrophils 75.1 % (42.0-75.0); Hematocrit 27.6 % (42.0-52.0); Mean Corpuscular HGB CONC 32.6 g/dL (32.0-36.0); Mean Corpuscular Hemoglobin 25.2 pg (27.0-31.0); Mean Corpuscular Volume 77.3 fL (78.0-98.0); Mean Platelet Volume 10.4 fL (7.4-10.4); Platelet Count 154 10x3/uL (130-400); RBC Distribution Width 24.4 % (11.5-14.5); Red Blood Cell (RBC) Count 3.57 mill/uL (4.70-6.10)
[2023-12-30 06:18] LABS: Anion Gap 11 mmol/L (10-20); BUN (Urea Nitrogen) 5 mg/dL (8.4-25.7); Calc. Creatinine Clearance 126 mL/min (70-130); Calcium 8.2 mg/dL (7.8-10.44); Carbon Dioxide 21 mmol/L (22-29); Chloride 106 mmol/L (98-107); Estimated GFR 111; Glucose 85 mg/dL (70-105); Magnesium 1.6 mg/dL (1.6-2.6); Potassium 3.8 mmol/L (3.5-5.1); Sodium 134 mmol/L (136-145)
[2023-12-30] MEDS: Magnesium 2 GM/50 ML(in water) 2 GM in Premix 1 BAG IVPB SCH (08:46)
[2023-12-31 08:37] LABS: Anion Gap 11 mmol/L (10-20); BUN (Urea Nitrogen) 4 mg/dL (8.4-25.7); Calc. Creatinine Clearance 138 mL/min (70-130); Calcium 7.9 mg/dL (7.8-10.44); Carbon Dioxide 20 mmol/L (22-29); Chloride 107 mmol/L (98-107); Estimated GFR 112; Glucose 87 mg/dL (70-105); Sodium 134 mmol/L (136-145)
[2023-12-31 08:53] LABS: Hematocrit 27.9 % (42.0-52.0); Mean Corpuscular HGB CONC 32.3 g/dL (32.0-36.0); Mean Corpuscular Hemoglobin 25.6 pg (27.0-31.0); Mean Corpuscular Volume 79.3 fL (78.0-98.0); Mean Platelet Volume 10.3 fL (7.4-10.4); Platelet Count 167 10x3/uL (130-400); RBC Distribution Width 24.1 % (11.5-14.5); Red Blood Cell (RBC) Count 3.52 mill/uL (4.70-6.10)
[2023-12-31 09:36] LABS: Anisocytosis MARKED = >30 cells HPF (0-5); Band 2 % (5-11); Burr Cells SLIGHT = 2-5 cells HPF (0-1); Hypochromia MODERATE=16-30 cells HPF (0-5); Large Platelets 4.8 % (0-5); Lymphocytes 13 % (21-51); Macrocytosis MODERATE=16-30 cells HPF (0-5); Monocytes 4 % (0-10); Neutrophil 81 % (42-75); Platelet Adequacy Comment Platelets Normal; Polychromasia MARKED = >4 cells HPF (0-2); Target Cells MODERATE= 6-15 cells HPF (0-1)
[2023-12-31 10:10] VITALS: BMI 28.4
[2023-12-31 12:23] VITALS: BP 122/75; TEMP 98.4
== END 2023-12-31 12:20 | disposition home or self-care (01) | DRG 336 ==
LOC: ERS 08:28 → OBS 11:56 → OBSVTOIN 12-23 13:00 → SURG A 12-26 21:41
PROVIDERS: ADMIT Hospitalist; ATTEND Internal Medicine
PROC: 30233N1 Transfusion of Nonautologous Red Blood Cells into Peripheral Vein, Percutaneous Approach (ICD-10-PCS; 2023-12-22)
PROC: 0DB78ZX Excision of Stomach, Pylorus, Via Natural or Artificial Opening Endoscopic, Diagnostic (ICD-10-PCS; 2023-12-23)
PROC: 0DJD8ZZ Inspection of Lower Intestinal Tract, Via Natural or Artificial Opening Endoscopic (ICD-10-PCS; 2023-12-24)
PROC: 0DNW0ZZ Release Peritoneum, Open Approach (ICD-10-PCS; principal; 2023-12-26)
PROC: 0DJW4ZZ Inspection of Peritoneum, Percutaneous Endoscopic Approach (ICD-10-PCS; 2023-12-26)
PROC: 30233K1 Transfusion of Nonautologous Frozen Plasma into Peripheral Vein, Percutaneous Approach (ICD-10-PCS; 2023-12-26)
DX: K52.89 Other specified noninfective gastroenteritis and colitis (principal); D62 Acute posthemorrhagic anemia; K76.6 Portal hypertension; E44.0 Moderate protein-calorie malnutrition; I85.00 Esophageal varices without bleeding; K31.89 Other diseases of stomach and duodenum; K31.7 Polyp of stomach and duodenum; K74.60 Unspecified cirrhosis of liver; D50.9 Iron deficiency anemia, unspecified; K29.00 Acute gastritis without bleeding; D72.829 Elevated white blood cell count, unspecified; Z79.899 Other long term (current) drug therapy; F10.10 Alcohol abuse, uncomplicated; Z68.28 Body mass index [BMI] 28.0-28.9, adult
CPT/HCPCS: 36415; 36416; 36430; 74177; 80048; 80053; 80074; 80076; 80306; 81001; 82103; 82274; 82306; 82390; 83516; 83605; 83690; 83735; 84134; 84484; 85025; 85610; 85730; 86015; 86038; 86225; 86850; 86900; 86901; 88305; 88342; 93005; 96365; 96374; 96375; 96376; A4314; A6258; G0378; J0694; J0696; J1100; J1170; J2250; J2354; J2405; J2470; J2704; J2916; J3411; J3475; J3490; J7030; J7050; P9016; P9059; Q9967

== ENCOUNTER 2024-01-03 20:37 | Inpatient (IN) | payer OTHER ==
[~2024-01-03 20:37] MED LIST: Iopamidol-370 76% 500 ML MDV (1 ML CHARGE) ONE
[2024-01-03 21:54] LABS: ALT (SGPT) 17 U/L (8-55); AST (SGOT) 55 U/L (5-34); Albumin 2.8 g/dL (3.5-5.0); Alkaline Phosphatase 215 U/L (40-110); Anion Gap 13 mmol/L (10-20); BUN (Urea Nitrogen) Less than 4 mg/dL (8.4-25.7); Bilirubin, Total 1.8 mg/dL (0.2-1.2); Calc. Creatinine Clearance 0 mL/min (70-130); Carbon Dioxide 22 mmol/L (22-29); Chloride 105 mmol/L (98-107); Estimated GFR 111; Globulin 4.5 g/dL (2.4-3.5); Glucose 103 mg/dL (70-105); Lipase 21 U/L (8-78); Potassium 3.7 mmol/L (3.5-5.1); Protein, Total 7.3 g/dL (6.0-8.3); Sodium 136 mmol/L (136-145)
[2024-01-03 22:00] LABS: Troponin I Less than 0.010 ng/mL (< 0.028)
[2024-01-03 22:06] LABS: #Basophils 0.09 10x3/uL (0.0-0.2); %Basophils 0.5 % (0.0-1.0); %Eosinophils 1.7 % (0.0-10.0); %Monocytes 7.3 % (0.0-10.0); %Neutrophils 78.2 % (42.0-75.0); Hematocrit 32.1 % (42.0-52.0); Hemoglobin 10.3 g/dL (14.0-18.0); Mean Corpuscular HGB CONC 32.1 g/dL (32.0-36.0); Mean Corpuscular Hemoglobin 25.8 pg (27.0-31.0); Mean Corpuscular Volume 80.3 fL (78.0-98.0); Mean Platelet Volume 10.8 fL (7.4-10.4); Platelet Count 223 10x3/uL (130-400); RBC Distribution Width 24.5 % (11.5-14.5)
[2024-01-03 23:05] LABS: Anisocytosis SLIGHT = 6-15 cells HPF (0-5); Elliptocytes SLIGHT = 2-5 cells HPF (0-1); Hypochromia SLIGHT = 6-15 cells HPF (0-5); Microcytosis SLIGHT = 6-15 cells HPF (0-5); Platelet Adequacy Comment Platelets Normal; Polychromasia SLIGHT = 2-3 cells HPF (0-2); Target Cells SLIGHT = 2-5 cells HPF (0-1)
[2024-01-04 01:40] LABS: Bacteria/HPF None Seen HPF (None Seen); Bilirubin Negative (Negative); Blood, Urine Negative (Negative); CAUTI Indications for Culture Dysuria,urgency,freq; Clarity Clear (Clear); Glucose, Urine (Dipstick) Normal (Negative); Ketone, Urine Negative (Negative); Leukocyte Negative Leu/uL (Negative); Nitrite Negative (Negative); Protein, Urine (Dipstick) 20 mg/dL (Neg-Trace); RBC/HPF 0-3 HPF (0-3); Urobilinogen 12 mg/dL (Less than 2); WBC/HPF None Seen HPF (0-3); pH, Urine 6.5 (5.0-9.0)
[2024-01-04 01:41] LABS: Specific Gravity, Urine Greater than 1.060 (1.002-1.036)
[2024-01-04 01:42] LABS: Urine Culture Reflex No No
[2024-01-04 04:50] VITALS: BMI 25.8
[2024-01-04] MEDS ORDERED: Ondansetron PF 4 MG/2 ML Vial IVP PRN (05:00)
[2024-01-04] MEDS ORDERED: Acetaminophen 325 MG TAB PO PRN (05:00)
[2024-01-04] MEDS ORDERED: Ondansetron ODT 4 MG TAB SL PRN (05:00)
[2024-01-04 10:12] LABS: Burr Cells MODERATE= 6-15 cells HPF (0-1); Microcytosis SLIGHT = 6-15 cells HPF (0-5); Platelet Adequacy Comment Platelets Normal; Polychromasia MODERATE = 3-4 cells HPF (0-2); Target Cells MODERATE= 6-15 cells HPF (0-1)
[2024-01-04 10:21] LABS: #Basophils 0.08 10x3/uL (0.0-0.2); %Basophils 0.6 % (0.0-1.0); %Eosinophils 2.8 % (0.0-10.0); %Lymphocytes 15.4 % (21.0-51.0); %Monocytes 8.5 % (0.0-10.0); %Neutrophils 72.4 % (42.0-75.0); Hematocrit 30.4 % (42.0-52.0); Hemoglobin 9.9 g/dL (14.0-18.0); Mean Corpuscular HGB CONC 32.6 g/dL (32.0-36.0); Mean Corpuscular Hemoglobin 25.8 pg (27.0-31.0); Mean Corpuscular Volume 79.4 fL (78.0-98.0); Mean Platelet Volume 10.8 fL (7.4-10.4); Platelet Count 214 10x3/uL (130-400); RBC Distribution Width 24.4 % (11.5-14.5); Red Blood Cell (RBC) Count 3.83 mill/uL (4.70-6.10)
[2024-01-04] MEDS ORDERED: Lidocaine 1% PF 5 ML VIAL ONE (10:24)
[2024-01-04] MEDS: Pantoprazole DR 40 MG TAB PO SCH (12:11)
[2024-01-04] MEDS: FLU (Fluarix Triv) TS24-25(6MOS UP)/PF 45 MCG/0.5 ML Syringe IM ONE (12:12)
[2024-01-04 12:21] LABS: RBC Count-Automated (BF) 71493 /cu.mm; WBC/Nucleated-Auto (BF) 674 /cu.mm
[2024-01-04 12:27] LABS: Fluid, Protein 2.4 g/dL (Not Available)
[2024-01-04 12:47] LABS: Body Fluid Source Ascites Body Fluid
[2024-01-04 12:48] LABS: BF Color Red; Clarity Cloudy/Turbid (Clear); Tube # EDTA
[2024-01-04 12:59] LABS: BF Segmented Neutrophils 28 %; Cell Count Non Hematic 54 %; Eosinophils 1 %; Lymphocytes 17 %
[2024-01-04] MEDS: Acetaminophen 325 MG TAB PO PRN (18:54)
[2024-01-04] MEDS: Folic Acid 1 MG TAB PO SCH (20:34)
[2024-01-05 05:27] LABS: #Basophils 0.08 10x3/uL (0.0-0.2); %Basophils 0.6 % (0.0-1.0); %Eosinophils 2.6 % (0.0-10.0); %Lymphocytes 12.2 % (21.0-51.0); %Monocytes 8.3 % (0.0-10.0); %Neutrophils 75.9 % (42.0-75.0); Hematocrit 28.7 % (42.0-52.0); Hemoglobin 9.3 g/dL (14.0-18.0); Mean Corpuscular HGB CONC 32.4 g/dL (32.0-36.0); Mean Corpuscular Hemoglobin 25.7 pg (27.0-31.0); Mean Corpuscular Volume 79.3 fL (78.0-98.0); Mean Platelet Volume 10.7 fL (7.4-10.4); Platelet Count 197 10x3/uL (130-400); Red Blood Cell (RBC) Count 3.62 mill/uL (4.70-6.10)
[2024-01-05 05:51] LABS: ALT (SGPT) 15 U/L (8-55); AST (SGOT) 39 U/L (5-34); Albumin 2.3 g/dL (3.5-5.0); Alkaline Phosphatase 175 U/L (40-110); Anion Gap 12 mmol/L (10-20); BUN (Urea Nitrogen) 4 mg/dL (8.4-25.7); Bilirubin, Total 1.4 mg/dL (0.2-1.2); Calc. Creatinine Clearance 133 mL/min (70-130); Calcium 8.2 mg/dL (7.8-10.44); Carbon Dioxide 23 mmol/L (22-29); Chloride 106 mmol/L (98-107); Estimated GFR 112; Globulin 3.7 g/dL (2.4-3.5); Glucose 99 mg/dL (70-105); Potassium 3.7 mmol/L (3.5-5.1); Sodium 137 mmol/L (136-145)
[2024-01-05 06:28] LABS: Anisocytosis SLIGHT = 6-15 cells HPF (0-5); Hypochromia SLIGHT = 6-15 cells HPF (0-5); Platelet Adequacy Comment Platelets Normal; Polychromasia SLIGHT = 2-3 cells HPF (0-2); Target Cells SLIGHT = 2-5 cells HPF (0-1)
[2024-01-05] MEDS: Pantoprazole DR 40 MG TAB PO SCH (09:53)
[2024-01-05] MEDS: Thiamine 100 MG TAB PO SCH (09:53)
[2024-01-05] MEDS: Piperacillin/Tazobactam 3.375 GM in Sodium Chloride 0.9% 100 ML IVPB SCH ×2 (10:29→13:34)
[2024-01-05] MEDS ORDERED: Piperacillin/Tazobactam 3.375 GM in Sodium Chloride 0.9% 100 ML IVPB SCH (12:00)
[2024-01-05] MEDS: Senokot S 8.6-50 MG TAB PO SCH (22:17)
[2024-01-06 06:17] LABS: Anion Gap 11 mmol/L (10-20); BUN (Urea Nitrogen) 6 mg/dL (8.4-25.7); Calc. Creatinine Clearance 124 mL/min (70-130); Calcium 8.2 mg/dL (7.8-10.44); Carbon Dioxide 26 mmol/L (22-29); Chloride 105 mmol/L (98-107); Estimated GFR 110; Glucose 101 mg/dL (70-105); Potassium 3.7 mmol/L (3.5-5.1); Sodium 138 mmol/L (136-145)
[2024-01-06] MEDS: Nadolol 40 MG TAB PO SCH (08:31)
[2024-01-06] MEDS: Polyethylene Glycol 3350 17 GM Packet PO SCH (08:31)
[2024-01-06] MEDS: Spironolactone 100 MG TAB PO SCH (09:04)
[2024-01-06] MEDS: Furosemide 40 MG TAB PO SCH (09:04)
[2024-01-06 12:18] VITALS: BP 105/68; TEMP 98.2
[2024-01-06] MEDS: Ciprofloxacin 500 MG TAB PO SCH (13:02)
[2024-01-06] MEDS ORDERED: Ciprofloxacin 500 MG TAB PO SCH (20:00)
== END 2024-01-06 13:32 | disposition home or self-care (01) | DRG 434 ==
LOC: ERS 20:37 → SURG B 01-04 03:44 → OBSVTOIN 01-05 10:22
PROVIDERS: ADMIT Internal Medicine; ATTEND Family Medicine
PROC: 0W9G3ZZ Drainage of Peritoneal Cavity, Percutaneous Approach (ICD-10-PCS; principal; 2024-01-04)
DX: K70.31 Alcoholic cirrhosis of liver with ascites (principal); K59.00 Constipation, unspecified; D63.8 Anemia in other chronic diseases classified elsewhere; F10.90 Alcohol use, unspecified, uncomplicated; D72.829 Elevated white blood cell count, unspecified; E88.09 Other disorders of plasma-protein metabolism, not elsewhere classified
CPT/HCPCS: 36415; 49083; 71045; 74177; 80048; 80053; 81001; 83605; 83615; 83690; 83880; 84157; 84484; 85025; 85060; 87040; 87070; 87205; 89051; 93005; G0378; J2543; Q9967